=== PATIENT | female | born 1990 | race Two or more races ===

== ENCOUNTER 2024-06-14 08:31 | Inpatient (IN) | payer MEDICAID, SELFPAY ==
[2024-06-14] VITALS (82 sets, daily range): BP systolic 109–125; BP diastolic 56–73; PULSE 61–91; RESP 20–98; TEMP 36.6–36.7; O2SAT 97–100; BMI 32.4
--- NOTE | 2024-06-14 09:13 | XR_ITS ---
Examination: Complete OB ultrasound greater than 14 weeks Date and time of exam: June 06, 2024 10:40 AM Indications: Vaginal bleeding episodes beginning 4 days ago Findings: Viable intrauterine single fetus with single amniotic sac presentation breech spine anterior Cardiac motion 148 BPM Placenta anterior grade 2 Umbilical cord insertion seen Amniotic fluid index 20 cm Cervix dilatation diameter 3 cm Right ovary 3.2 cm arterial flow Left ovary 3.6 cm arterial flow The central venous lakes. Composite estimated gestational age based on BPD, head circumference, abdominal circumference, femur length is 24 weeks 5 days Estimated weight 657 g. Survey of intracranial anatomy, spinal anatomy, abdominal anatomy, four-chamber heart performed with no abnormalities identified. Impression: Viable intrauterine gestation breech presentation Cervix funneling
[2024-06-14 09:46] LABS: Collection Type, Urine Clean Catch
[2024-06-14 09:55] LABS: ROM Kit Lot # 57809118
[2024-06-14 09:56] LABS: ROM Swab Mixed By: HUNEE1; Swb Mxed in Solvent 1 min? Yes
[2024-06-14 09:57] LABS: Rupture of Fetal Membranes Negative (Negative)
[2024-06-14 09:59] LABS: Bacteria,Urine Rare; Bilirubin,Urine Negative (Negative); Blood,Urine Trace (Negative); Clarity,Urine Turbid (Clear/Hazy); Color,Urine Yellow (Lt Yel-Yel); Glucose, Urine Negative (Negative); Ketones,Urine Negative (Negative); Leukocyte Esterase,Urine Positive (Negative); Nitrite,Urine Negative (Negative); PH,Urine 6.5 (5.0-7.0); Protein,Urine Trace (Neg - Trace); RBC,Urine 11 /hpf (0-3); Specific Gravity,Urine 1.021 (1.001-1.035); Squamous Epithelial Cell,Urine 15 /hpf (0-5); Urobilinogen,Urine Negative mg/dL (0.0-1.0); WBC,Urine 135 /hpf (0-5)
[2024-06-14 10:15] LABS: FFN Specimen Descripton Clr Colrless Aqueous; Fetal Fibronectin Positive (Negative)
[2024-06-14] MEDS: RINGERS LACTATED 1000 ML 1,000 ML 75 ML IV (13:13)
[2024-06-14] MEDS: Magnesium Sulfate 4 GM Ivpb 4 GM/50 ML BAG IV (13:14)
[2024-06-14] MEDS: BETAMET ACET/BETAMET NA PH (Celestone) 6 MG/ML VIAL 12 MG IM (13:25)
--- NOTE | 2024-06-14 13:49 | PC.CC ---
Addendum entered by Chloe Ray RN 06/14/24 15:38: 1536 [facility] [employer]. Called [facility], spoke to Rosalba and she confirmed that she received the paperwork. Addendum entered by Chloe Ray RN 06/14/24 15:35: 1531 called [facility], pt will be going to L&D. Room 366. 1526 called OB charge nurse at [facility] [phone] and found pt will be going to L&D. Room 366. 1515 Made 2 transfer packets. 1 for [facility] with CD inside and 1 for [facility]. All signatures are completed. Gave transfer packets to bedside nurse and number to call for report was given earlier at 1440. Bedside nurse informed me that she didn't get the room info Addendum entered by Chloe Ray RN 06/14/24 15:01: 1457 received call from [facility] that pt is accepted and ETA is 20min. He wants to speak to nurse for and para information. Conference call connected. Addendum entered by Chloe Ray RN 06/14/24 14:55: 1447 called [facility] Eduardo, spoke to [facility] to set up the transport. He stated he will call me back with ETA. [address] Villatoro regarding transportation, got orders to airlift the pt. 1440 called L&D, spoke to Kristi and gave information. 1436 received call from [facility], spoke to Negrita. She stated pt is accepted at [facility]. Accepted by Dr. Salinas. Call report to OB charge nurse at [phone] and she will give the room information. Addendum entered by Chloe Ray RN 06/14/24 14:10: 1358 called X-Ray tech to make CD. Original Note: 1402 faxed face sheet and ultrasound report to [facility], no providers note is available at this time. 1355 called [facility], spoke to Negrita. She is already aware about the transfer and she stated she is working on it. She stated to fax face sheet. 1349 received call from Kristi from OB dept that pt needs to be transferred to [facility] for labor, 3cm bulging bag of water, no contraction and no bleeding. Hx of loss of at 10weeks.
[2024-06-14 13:50] LABS: ROM Kit Lot # 57809118; ROM Swab Mixed By: YOURB; Rupture of Fetal Membranes Positive (Negative); Swb Mxed in Solvent 1 min? Yes
[2024-06-14] MEDS: MAGNESIUM SULF 20 GM IVPB 20 GM/500 ML BAG IV (14:00)
[2024-06-14] MEDS: Ampicillin Inj 2,000 MG in SODIUM CHLORIDE 0.9% (POP) 100 ML 100 MG IV (14:09)
[2024-06-14] MEDS: AZITHROMYCIN INJ 500 MG in SODIUM CHLORIDE 0.9% 250 ML 250 ML 250 MG IV (15:22)
--- NOTE | 2024-06-14 15:33 | ESHP_ITS ---
RE: KIRSTEN SCHMID : 1990 DATE OF ADMISSION: 06/14/2024 HISTORY OF PRESENT ILLNESS: This is a 33-year-old 2, para 0-0-1-0 with intrauterine at 25 weeks and 1 day who presents to labor and delivery complaining of intermittent vaginal leaking since Monday. The patient denies any contractions. She reports normal movement. She denies any foul smelling discharge, fever, abdominal or pelvic pain. Her care had been uncomplicated. She had an ultrasound on 05/27 showing a cervix that was long enclosed at 6 cm with normal anatomy. ALLERGIES: NO KNOWN DRUG ALLERGIES. MEDICATIONS: multivitamin 1 p.o. daily. PAST MEDICAL HISTORY: Bicornuate uterus, borderline systolic hypertension, subchorionic hemorrhage first trimester, and iron deficiency anemia. SOCIAL HISTORY: She denies any alcohol, drug use, or smoking, but she did use marijuana early in . OBSTETRIC HISTORY: Prior 10-week spontaneous AB without D and C. PAST SURGICAL HISTORY: Denies. REVIEW OF SYSTEMS: She denies any chest pain, palpitations, cough, fever, shortness of breath, or lower extremity pain. PHYSICAL EXAMINATION: VITAL SIGNS: Blood pressure is 120/72, heart rate 88, respirations 18, temperature 98.6. HEENT: Oropharynx and sclerae are clear. LUNGS: Clear to auscultation bilaterally. HEART: Regular rate and rhythm. ABDOMEN: Nontender. Fundus consistent with 25 weeks' gestation. PELVIC: Sterile pelvic exam reveals 2-3 cm dilated cervix with bulging intact membranes. No abnormal discharge or fluid seen in the vaginal vault. EXTREMITIES: Nontender. SKIN: No gross rashes or lesions. NEUROLOGIC: No focal deficit. ASSESSMENT: 1. Intrauterine at 21 weeks and 1 day. 2. Bicornuate uterus. 3. Incompetent cervix versus labor. 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 Node is made. fibronectin was positive. AmniSure was negative. Ultrasound shows SELENA of 20, aurea breech presentation. I discussed with the patient, the nature of her condition and the recommended treatment plan and she agrees. I discussed the case with maternal medicine specialist, Dr. Salinas, at [facility] and he agrees with transfer of patient. The patient is stable for transfer as she has absolutely no abdominal pain or contractions or cramping. The amniotic sac is intact. The AmniSure is negative. There is no imminent delivery and we will keep her on magnesium sulfate in slight Trendelenburg and she should have no problem with her transfer. I discussed with the patient, the risks, complications, alternatives, and benefits of the transfer, possibility that unforeseen circumstances can occur and that the baby would be best delivered in a tertiary care setting and the patient agreed and is willing to transfer to a tertiary care setting. DT: 14:17:28 TT: 15:30:00 Ref: [id number] - TID: [id number]
[2024-06-14 15:38] LABS: Alanine Aminotransferase 12 U/L (10-49); Albumin, Serum 3.7 gm/dL (3.5-5.0); Albumin/Globulin Ratio 1.4 (1.2-2.2); Alkaline Phosphatase 56 U/L (46-116); Anion Gap 10 (7-16); Aspartate Amino Transferase 20 U/L (0-34); BUN/Creatinine Ratio 14 Ratio (12-20); Bilirubin,Total 0.5 mg/dL (0.3-1.2); Blood Urea Nitrogen 7 mg/dL (9-23); Calcium 8.8 mg/dL (8.3-10.6); Carbon Dioxide 23.5 mMol/L (20.0-31.0); Chloride 108 mMol/L (98-107); Creatinine (Component) 0.5 mg/dL (0.6-1.3); Estimated Creatinine Clearance 172.8 mL/min (>60); Globulin 2.6 gm/dL (2.3-3.5); Glucose 63 mg/dL (74-106); Osmolality,Calculated 277 (275-295); Potassium 3.9 mMol/L (3.4-5.1); Sodium 141 mMol/L (136-145); Total Protein 6.3 gm/dL (5.7-8.2); Uric Acid 3.4 mg/dL (3.1-7.8); eGFR > 60 See Note
[2024-06-14 15:39] LABS: Partial Thromboplastin Time 29.5 Seconds (22.0-36.0); Prothrombin Time 10.9 Seconds (9.0-12.2)
[2024-06-14 15:54] LABS: Syphilis Nonreactive (Nonreactive)
[2024-06-14 16:51] LABS: Basophils % (Auto) 0 % (0-2.5); Eosinophils # (Auto) 0.1 Thou/mm3 (0.0-0.5); Eosinophils % (Auto) 1 % (0-10); Hemoglobin 10.2 g/dL (12.0-16.0); Immature Granulocytes % (Auto) 0 % (0-0); Immature Granulocytes Auto 0.03 Thou/mm3 (0.00-0.00); Lymphocytes # (Auto) 2.8 Thou/mm3 (1.0-4.8); Lymphocytes % (Auto) 28 % (10-50); Mean Corpuscular Hemoglobin 29.7 pg (25.0-35.0); Mean Corpuscular Volume 88 fL (80-100); Monocytes # (Auto) 0.8 Thou/mm3 (0.0-0.8); Monocytes % (Auto) 8 % (0-12); Neutrophils # (Auto) 6.2 Thou/mm3 (1.8-7.7); Neutrophils % (Auto) 63 % (37-80); Nucleated Red Blood Cell % 0 /100 WBC (0); Platelet Count 260 Thou/mm3 (140-440); RDW Standard Deviation 42.7 fL (36.4-46.3); Red Blood Count 3.43 Miln/mm3 (4.00-5.20); White Blood Count 9.9 Thou/mm3 (3.6-11.0)
[2024-06-14 17:04] LABS: Fibrinogen 602 mg/dL (175-375)
== END 2024-06-14 15:53 | disposition short-term general hospital (02) | DRG 566 ==
PROVIDERS: Admitting Provider Specialist; Visit Provider Specialist
DX: O34.02 Maternal care for unspecified congenital malformation of uterus, second trimester (principal); Q51.3 Bicornate uterus; O32.1XX0 Maternal care for breech presentation, not applicable or unspecified; Z3A.21 21 weeks gestation of pregnancy
CPT/HCPCS: 36415; 59025; 76805; 80053; 81001; 82731; 84112; 84550; 85025; 85384; 85610; 85730; 86780; 86850; 86900; 86901; J0290; J0456; J0702; J3475; J7050; J7120

== ENCOUNTER 2024-11-05 05:45 | Day surgery (SDC) | payer MEDICAID, SELFPAY ==
--- NOTE | 2024-11-01 09:27 | ESHP_ITS ---
RE: KIRSTEN SCHMID : 1990 DATE OF ADMISSION: 10/26/2024 DATE OF SURGERY: 11/06/2023 This is a 33-year-old 3, para 0-1-1-1 with intrauterine at 12 weeks and 1 day, who presents for transvaginal cervical cerclage placement. The patient has an incompetent cervix and has a prior delivery at 25 weeks and 5 days due to incompetent cervix. She denies any vaginal bleeding or leaking. An ultrasound done in the office on 10/31 shows a viable intrauterine at 11 weeks and 4 days with positive cardiac activity. Her NIPT shows low risk for aneuploidy with a male fetus. PAST MEDICAL HISTORY: Iron deficiency anemia, bicornuate uterus, mild systolic hypertension, short interpregnancy interval. ALLERGIES: NO KNOWN DRUG ALLERGIES. MEDICATIONS: multivitamin 1 p.o. daily. SOCIAL HISTORY: The patient tested positive for marijuana by urine drug screen on 02/04/2024. FAMILY HISTORY: Diabetes. OBSTETRIC HISTORY: In 10/2023, 10 weeks spontaneous AB, no D and C. On 07/19/2024, 25-week delivery, 9-bvoua-30-ounce male, complicated by incompetent cervix. PAST SURGICAL HISTORY: delivery 06/18/2024. REVIEW OF SYSTEMS: She denies any chest pain, palpitations, cough, fever, shortness of breath or lower extremity pain. PHYSICAL EXAMINATION: VITAL SIGNS: Blood pressure 124/60, heart rate 88, respirations 18, temperature is 98.6, weight 192 pounds. HEENT: Oropharynx and sclerae are clear. LUNGS: Clear to auscultation bilaterally. HEART: Regular rate and rhythm. ABDOMEN: Gravid, consistent with 12 weeks' gestation. EXTREMITIES: Nontender. SKIN: No gross rashes or lesions. NEUROLOGIC: No focal deficit. ASSESSMENT AND PLAN: Intrauterine at 12 weeks and 1 day, incompetent cervix. PLAN: Placement of transvaginal cervical cerclage. Informed consent was obtained. The patient was made aware of the risks, complications, alternatives and benefits of the proposed procedure and she agrees. She is aware of the risk of miscarriage, bleeding leading to blood transfusion, pelvic infection, re-operation to repair injury to internal organs, premature delivery due to failure of cerclage to prevent incompetent cervix or delivery. DT: 09:09:41 TT: 09:25:00 Ref: [id number] - TID: [id number] [facility]
[2024-11-04 08:30] VITALS: BMI 32.9
[2024-11-04 09:41] LABS: Basophils # (Auto) 0.1 Thou/mm3 (0.0-0.2); Basophils % (Auto) 1 % (0-2.5); Eosinophils # (Auto) 0.2 Thou/mm3 (0.0-0.5); Eosinophils % (Auto) 2 % (0-10); Hematocrit 34.5 % (36.0-46.0); Hemoglobin 11.5 g/dL (12.0-16.0); Immature Granulocytes Auto 0.02 Thou/mm3 (0.00-0.00); Lymphocytes # (Auto) 2.3 Thou/mm3 (1.0-4.8); Lymphocytes % (Auto) 33 % (10-50); Mean Corpuscular HGB Conc 33.3 g/dl (31.0-37.0); Mean Corpuscular Hemoglobin 29.8 pg (25.0-35.0); Mean Corpuscular Volume 89 fL (80-100); Monocytes # (Auto) 0.7 Thou/mm3 (0.0-0.8); Monocytes % (Auto) 9 % (0-12); Neutrophils # (Auto) 4.0 Thou/mm3 (1.8-7.7); Neutrophils % (Auto) 55 % (37-80); Nucleated Red Blood Cell # 0.00 Thou/mm3 (0.00-0.00); Nucleated Red Blood Cell % 0 /100 WBC (0); Platelet Count 251 Thou/mm3 (140-440); RDW Standard Deviation 51.2 fL (36.4-46.3); Red Blood Count 3.86 Miln/mm3 (4.00-5.20); White Blood Count 7.2 Thou/mm3 (3.6-11.0)
[2024-11-04 09:48] LABS: INR 1.0 (0.9-1.3); Partial Thromboplastin Time 31.3 Seconds (22.0-36.0); Prothrombin Time 10.8 Seconds (9.0-12.2)
[2024-11-04 09:56] LABS: Alanine Aminotransferase 9 U/L (10-49); Albumin, Serum 4.1 gm/dL (3.5-5.0); Albumin/Globulin Ratio 1.9 (1.2-2.2); Alkaline Phosphatase 33 U/L (46-116); Anion Gap 10 (7-16); Aspartate Amino Transferase 16 U/L (0-34); BUN/Creatinine Ratio 7 Ratio (12-20); Bilirubin,Total 0.5 mg/dL (0.3-1.2); Blood Urea Nitrogen 5 mg/dL (9-23); Calcium 8.8 mg/dL (8.3-10.6); Calcium (Corrected) 8.8 mg/dL (8.5-10.1); Carbon Dioxide 25.1 mMol/L (20.0-31.0); Chloride 107 mMol/L (98-107); Creatinine (Component) 0.7 mg/dL (0.6-1.3); Estimated Creatinine Clearance 123.2 mL/min (>60); Globulin 2.2 gm/dL (2.3-3.5); Glucose 97 mg/dL (74-106); Osmolality,Calculated 280 (275-295); Potassium 4.1 mMol/L (3.4-5.1); Sodium 142 mMol/L (136-145); Total Protein 6.3 gm/dL (5.7-8.2); eGFR > 60 See Note
[2024-11-05] VITALS (15 sets, daily range): BP systolic 106–140; BP diastolic 44–94; PULSE 53–98; RESP 12–20; TEMP 36.8–37; O2SAT 97–100; BMI 32.4
--- NOTE | 2024-11-05 06:38 | PC.NURSE ---
heart tones 155.
--- NOTE | 2024-11-05 08:23 | SUR.PHASEI ---
0823 Patient arrived to recovery resting comfortably in [facility], awake and talking with staff, breathing unlabored, vital signs stable, denies pain, dressing intact to vaginal area; kerlix roll packing, no bleeding noted, post spinal anesthesia assessment via ice; patient has dermatome sensation at L1 groin, will continue to monitor, denies nausea, report received from Robbie BURROWS and Raeann ROCK
--- NOTE | 2024-11-05 08:25 | ESOP_ITS ---
Operative Note - BOAT WASHER Procedure Date of procedure: 11/05/24 Procedure Performed: Placement of transvaginal cervical cerclage Indication: Intrauterine at 12 weeks gestation Incompetent cervix Pre-Op diagnosis: Intrauterine of 12 weeks gestation Incompetent cervix Post-Op diagnosis: Intrauterine at 12 weeks gestation Incompetent cervix Anesthesia type: Spinal Procedure description: After proper informed consent was obtained. The patient was made aware of the risk complications alternatives and benefits of the proposed procedure. She was taken to the operating room. She underwent placement of spinal anesthesia. She was placed in dorsolithotomy position. A red rubber catheter was used to drain the bladder. She was prepped and draped in usual sterile fashion. A timeout was performed. A weighted speculum was placed in the posterior fornix of the vagina. Lateral vaginal retractors were placed at 12 and 9:00 with ring forceps on the cervix in the same position. Using the Mersilene 3 mm suture on a Hu catgut half-cheesh-na taper point ([id number]) needle the suture was placed beginning at 12:00 and exiting at 10:00. The lateral vaginal retractors were repositioned at 9:00 and 6:00 with ring forceps on the cervix in the same position. The needle and suture was placed at 8:00 and exiting at 6:00. The lateral vaginal retractors were repositioned at 6:00 and 3:00 with ring forceps on the cervix in the same position. The suture and needle were placed at at 5:00 and exiting at 4:00. The lateral vaginal retractors were placed at 3:00 and 12:00 with ring forceps on the cervix in the same position. The suture entered at 2:00 and exiting at 12:00 to 1:00. The suture was tied at the 12 o'clock position. Curlex Gauze was placed in the vaginal to absorb any oozing from the cervix. She tolerated the procedure well. Counts were correct. She was transfered to the recovery room in stable condition. I discussed with the patient the intraoperative findings, expectation for recovery, post operative discharge instructions reviewed pre-op and again post-op. She was instructed to remove the Curlex at 8:00 pm tonight. All questions answered. Specimen: none Estimated blood loss (ml): 50 Findings: 12 weeks size uterus 3 to 4 cm cervical length Cervix long and closed Complications: none Surgical staff Operation Date: 11/05/24 07:30 Case Staff RESTAURANT AND BAR MANAGER: Yuri Muse Diagnosis Discharge Diagnosis (1) Incompetence of cervix uteri: Status: Acute (2) Cervical cerclage suture present in second trimester: Status: Acute Problem List Completed Was Problem List Reviewed/Reconciled?: Yes
--- NOTE | 2024-11-05 08:42 | SUR.PHASEI ---
OB RN at bedside assessing heart tones with doppler
--- NOTE | 2024-11-05 10:32 | SUR.PHASEII ---
1032 patient had an episode of emesis 500ml,notified Robbie BURROWS via telephone, telephone order read-back received from Robbie BURROWS for Zofran 4mg via IVP, will place order in EMR and administer per anesthesia provider order
[2024-11-05] MEDS: ONDANSETRON INJ 2 MG/ML INJ 2 ML 4 MG IVP (10:36)
--- NOTE | 2024-11-05 10:50 | SUR.PHASEII ---
1050 medication effective, patient denies, drinking water
--- NOTE | 2024-11-05 10:53 | SUR.PHASEII ---
1050 Post spinal anesthesia assessment complete patient has dermatome sensation at S2 perineum
--- NOTE | 2024-11-05 11:27 | SUR.PHASEII ---
1127 Patient meets discharge criteria from recovery, awake and alert, breathing unlabored, vital signs stable, denies pain, dressing intact; no bleeding noted, patient able to dress herself into her clothing, voided in the restroom prior to discharge, denies nausea; tolerating fluids, discharge instructions given to patient and patients over speaker phone for her as he had a small child in the car, signed instructions at car side, patient given all her belongings prior to discharge, transported via wheelchair and left in a private vehicle.
== END 2024-11-05 11:27 | disposition home or self-care (01) ==
PROVIDERS: PCP Internal Medicine; Referring Provider Specialist; Visit Provider Specialist
PROC: 0UVC7ZZ Restriction of Cervix, Via Natural or Artificial Opening (ICD-10-PCS; CPT 57700; principal; 2024-11-05 07:30)
DX: O34.31 Maternal care for cervical incompetence, first trimester (principal); Z3A.12 12 weeks gestation of pregnancy; O99.011 Anemia complicating pregnancy, first trimester; O34.599 Maternal care for other abnormalities of gravid uterus, unspecified trimester; O10.011 Pre-existing essential hypertension complicating pregnancy, first trimester; O09.891 Supervision of other high risk pregnancies, first trimester
CPT/HCPCS: 59320; 36415; 80053; 85025; 85610; 85730; 86850; 86900; 86901; A4217; A4649; J0690; J2405; J2704; J3010; J3490; J1596

== ENCOUNTER 2025-01-27 11:40 | Outpatient (CLI) | payer MEDICAID, SELFPAY ==
[2025-01-27 11:47] VITALS: BP 116/58; PULSE 73
[2025-01-27 11:49] VITALS: BP 116/58; PULSE 73; RESP 18; RESP 98; TEMP 36.8; BMI 32.2
[2025-01-27] MEDS: BETAMET ACET/BETAMET NA PH (Celestone) 6 MG/ML VIAL 12 MG IM (12:05)
== END 2025-01-27 12:10 | disposition home or self-care (01) ==
LOC: S4S1 11:43 → S4SX 11:43
PROVIDERS: PCP Internal Medicine; Referring Provider Specialist; Visit Provider Specialist
DX: Z34.82 Encounter for supervision of other normal pregnancy, second trimester (principal); Z36.9 Encounter for antenatal screening, unspecified; Z3A.24 24 weeks gestation of pregnancy
CPT/HCPCS: 59025; 96372; J0702

== ENCOUNTER 2025-01-28 11:41 | Outpatient (CLI) | payer MEDICAID, SELFPAY ==
[2025-01-28 11:46] VITALS: BP 126/56; PULSE 75; RESP 18; RESP 99; TEMP 36.9; BMI 32.3
[2025-01-28] MEDS: BETAMET ACET/BETAMET NA PH (Celestone) 6 MG/ML VIAL 12 MG IM (12:02)
== END 2025-01-28 12:07 | disposition home or self-care (01) ==
LOC: S4S1 11:45 → S4SX 11:45
PROVIDERS: Referring Provider Specialist; Visit Provider Specialist
DX: Z34.82 Encounter for supervision of other normal pregnancy, second trimester (principal); Z36.9 Encounter for antenatal screening, unspecified; Z3A.25 25 weeks gestation of pregnancy
CPT/HCPCS: 59025; 96372; J0702

== ENCOUNTER 2025-02-12 17:19 | Emergency (ER) | payer MEDICAID, SELFPAY ==
[2025-02-12 17:19] VITALS: BMI 32.1
[2025-02-12 17:48] VITALS: BP 125/76; PULSE 86; RESP 17; TEMP 36.8; O2SAT 98
--- NOTE | 2025-02-12 18:15 | PC.NURSE ---
@1815 - PT SPEAKNG WITH THIS RN; PER PT, I'VE BEEN TALKING TO MY DENTIST AND SHE TOLD TO GO TO A HOSPITAL IN [place] INSTEAD OF WAITING AT A [place] [facility] ROOM. THEY ACTUALLY WILL HAVE THE SPECIALIST I NEED OVER THERE. IM GONNA TAKE MY DAD WITH ME TO [place].' RN EDUCATED PT ON RISKS OF LEAVING AMA. PT A&OX4, GCS 15. PT SIGNED AMA FORM AT THIS TIME.
== END 2025-02-12 18:15 | disposition left against medical advice (07) ==
LOC: SERX 18:37
PROVIDERS: Emergency Provider Emergency Medicine
DX: Z53.21 Procedure and treatment not carried out due to patient leaving prior to being seen by health care provider (principal)
CPT/HCPCS: 99281

== ENCOUNTER 2025-03-01 12:35 | Outpatient (CLI) | payer MEDICAID, SELFPAY ==
[2025-03-01] VITALS (7 sets, daily range): BP systolic 128; BP diastolic 60; PULSE 72–76; RESP 18–98; TEMP 37; O2SAT 97–98; BMI 33.3
[2025-03-01] MEDS: BETAMET ACET/BETAMET NA PH (Celestone) 6 MG/ML VIAL 12 MG IM (13:20)
== END 2025-03-01 13:30 | disposition home or self-care (01) ==
LOC: S4SX 13:27 → S4S1 13:44 → S4SX 13:44
PROVIDERS: Referring Provider Specialist; Visit Provider Specialist
DX: Z34.83 Encounter for supervision of other normal pregnancy, third trimester (principal); Z36.9 Encounter for antenatal screening, unspecified; Z3A.29 29 weeks gestation of pregnancy
CPT/HCPCS: 59025; 96372; J0702

== ENCOUNTER 2025-03-02 13:00 | Outpatient (CLI) | payer MEDICAID, SELFPAY ==
[2025-03-02] VITALS (12 sets, daily range): BP systolic 121; BP diastolic 61; PULSE 70–78; RESP 17–98; TEMP 36.9; O2SAT 97–99; BMI 46.2
[2025-03-02] MEDS: BETAMET ACET/BETAMET NA PH (Celestone) 6 MG/ML VIAL 12 MG IM (13:38)
== END 2025-03-02 14:09 | disposition home or self-care (01) ==
LOC: CDIM 13:12 → S4SX 13:12
PROVIDERS: Referring Provider Specialist; Visit Provider Specialist
DX: Z34.83 Encounter for supervision of other normal pregnancy, third trimester (principal); Z36.9 Encounter for antenatal screening, unspecified; Z3A.29 29 weeks gestation of pregnancy
CPT/HCPCS: 59025; 96372; J0702